=== PATIENT | female | born 1945 | race American Indian/Alaskan Native ===

== ENCOUNTER 2023-04-11 05:01 | Day surgery (SDC) | payer OTHER ==
[2023-04-04 14:55] VITALS: BMI 25.1
[2023-04-11] MEDS ORDERED: ISOSULFAN BLUE 50 MG/5 ML VIAL SQ ONE (14:48)
[2023-04-11] MEDS ORDERED: LIDOCAINE HCL/PF 2% SDV 5ML VIAL ONE (14:53)
[2023-04-11] MEDS ORDERED: PROPOFOL 20 ML ONE (14:53)
[2023-04-11] MEDS ORDERED: PHENYLEPHRINE HCL 10 MG/1 ML SINGLE DOSE VIAL ONE (14:54)
[2023-04-11] MEDS ORDERED: MIDAZOLAM HCL 2 MG/2 ML SINGLE DOSE VIAL ONE (16:03)
[2023-04-11] MEDS ORDERED: ONDANSETRON 4 MG/2 ML VIAL ONE (16:09)
[2023-04-11] MEDS ORDERED: METOCLOPRAMIDE HCL INJECTION 10 MG/2 ML VIAL ONE (16:09)
[2023-04-11] MEDS ORDERED: ceFAZolin SODIUM 1 GM VIAL IVPB ONE (16:12)
[2023-04-11] MEDS ORDERED: ceFAZolin SODIUM 1 GM VIAL ONE (16:12)
[2023-04-11] MEDS ORDERED: LIDOCAINE HCL 1%, 10 MG/ML (20ML VIAL) INF ONE (16:30)
[2023-04-11] MEDS ORDERED: ONDANSETRON 4 MG/2 ML VIAL IVPUSH PRN (17:14)
[2023-04-11] MEDS ORDERED: LACTATED RINGERS SOLUTION 1,000 ML IV SCH (17:15)
[2023-04-11] MEDS ORDERED: oxyCODONE HCL 5 MG TABLET ONE (18:19)
[2023-04-11] MEDS ORDERED: ACETAMINOPHEN INJECTION 100 ML IVPB ONE (18:19)
[2023-04-11] MEDS ORDERED: ACETAMINOPHEN 1000 MG/100 ML BAG IVPB ONE (18:25)
[2023-04-11] MEDS ORDERED: oxyCODONE HCL 5 MG TABLET PO ONE (18:25)
[2023-04-11 18:35] VITALS: RESP 20; TEMP 97.7
[2023-04-11 19:11] VITALS: BP 170/75; PULSE 80
== END 2023-04-11 19:00 | disposition home or self-care (01) ==
LOC: JASU-SURG 05:01
PROVIDERS: ATTEND Surgery
PROC: 0HBT0ZZ Excision of Right Breast, Open Approach (ICD-10-PCS; principal; 2023-04-11 12:30)
DX: C50.911 Malignant neoplasm of unspecified site of right female breast (principal)
CPT/HCPCS: 78195-TC; 82962; 94760; A9541